=== PATIENT | female | born 2000 | race Caucasian/White ===

== ENCOUNTER 2022-01-06 12:12 | Outpatient (CLI) | payer OTHER, SELFPAY | END 2022-01-06 12:13 | disposition home or self-care (01) | LOC: AMB 02-03 13:10 | PROVIDERS: Visit Provider Family Medicine | DX: R10.9 Unspecified abdominal pain (principal) | CPT/HCPCS: A0425; A0427 ==

== ENCOUNTER 2022-01-06 12:39 | Emergency (ER) | payer OTHER, SELFPAY ==
[2022-01-06 12:45] VITALS: BP 109/65; PULSE 73; RESP 18; TEMP 36.9; O2SAT 96; BMI 21.7
--- NOTE | 2022-01-06 13:19 | ED.GENADULT ---
HPI - General Adult General Time Seen by Provider: 13:20 Date Seen: 01/06/22 Chief complaint: Abdominal Pain Stated complaint: Abdominal pain Time Seen by Provider: 01/06/22 12:52 Source: patient Mode of arrival: EMS Limitations: no limitations History of Present Illness HPI narrative: Patient is a 21-year-old [place] female who is running cross-country today. She completed her race and had severe cramping in her lower abdomen. She reports she has had some intermittent cramping in her abdomen throughout the week. She actually was hospitalized by By her report for about 10 days, in the past urine half for abdominal pain, she had a exploratory laparotomy that showed mesenteric adenitis. There E apparently left appendix intact. She is not on any medications. She is allergic to an antibiotic. She has had no dysuria, frequency, blood in her stool, appetite suppression, weight loss. She has not been known to have inflammatory bowel disease. 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 She was brought in by ambulance, she received IM morphine and nasal fentanyl and she feels better in terms the abdominal discomfort Related Data Home Medications Medication Instructions Recorded Confirmed Bcp 01/06/22 acid controller 01/06/22 Allergies Allergy/AdvReac Type Severity Reaction Status Date / Time antibiotic unknown name Allergy Rash Uncoded 01/06/22 12:43 Review of Systems Status of ROS: Reports: 10 or more systems reviewed and unremarkable except as noted in History and below [facility] Social History Smoking Status: Unknown if ever smoked Non-prescribed substance use: denies use service: No Exam Narrative: Exam Narrative: Objective: Patient is in no apparent distress, talking to her mom on the phone and her roommate is here for support as well Vital signs unremarkable Alert or x3 Mental status appears appropriate HEENT shows no scleral icterus, neck is supple Heart rhythm regular heart murmur chest is clear Abdomen benign soft nontender bowel sounds normoactive Extremities are no edema neurologic nonfocal Good peripheral perfusion perfusion Skin warm and dry Const: Vital Signs, click to edit/add: Vital Signs - 24 hr 01/06/22 12:45 Temperature 98.4 F Pulse Rate [Right Pulse Oximeter] 73 Respiratory Rate 18 Blood Pressure [Ri ght Upper Arm] 109/65 Pulse Oximetry 96 Oxygen Delivery Me thod Room Air Course Vital Signs Vital signs: Initial Vital Signs Temperature 98.4 F 01/06/22 12:45 Temperature Source Temporal Artery Scan 01/06/22 12:45 Pulse Rate 73 01/06/22 12:45 Respiratory Rate 18 01/06/22 12:45 Blood Pressure 109/65 01/06/22 12:45 Blood Pressure Mean 79 01/06/22 12:45 Blood Pressure Position Left Lateral 01/06/22 12:45 Pulse Oximetry 96 01/06/22 12:45 Oxygen Delivery Method 01/06/22 12:45 Vital Signs Temperature 98.4 F 01/06/22 12:45 Pulse Rate 73 01/06/22 12:45 Respiratory Rate 18 01/06/22 12:45 Blood Pressure 109/65 01/06/22 12:45 Pulse Oximetry 96 01/06/22 12:45 Oxygen Delivery Method 01/06/22 12:45 Temperature 98.4 F 01/06/22 12:45 Pulse Rate 73 01/06/22 12:45 Respiratory Rate 18 01/06/22 12:45 Blood Pressure 109/65 01/06/22 12:45 Pulse Oximetry 96 01/06/22 12:45 Oxygen Delivery Method 01/06/22 12:45 Medical Decision Making MDM Narrative Medical decision making narrative: 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 It has been very cold out today, she has had some chronic stomach issues it sounds like. She seems better at this time. She has a non peritoneal abdomen on exam, with no masses. She certainly could be having dehydration causing some of her symptomology common will give her at 1 L IV fluid, will also give her Ativan 0.5 mg IV to help settle her intestinal tract if it is cramping or she has got intestinal colic from running. At this point I do not see a need to image as I think the risk would outweigh the benefit. Will check her labs and give the IV fluid see how she responds. If she improves and I think home light activity fluids and rest would be appropriate for few days and follow up with primary care in the next 2 days. Will review the labs and clinical response is these transpire. Addendum: The patient's labs are back and they look great very reassuring, she is feeling better, I think we can safely let her go home rest light activity, no exercise for a couple of days recheck with primary care in the next 2 days return to ED sooner problems concerns or recurrence. Lab Data Labs: Lab Results 01/06/22 01/06/22 01/06/22 Range/Units 13:30 13:30 13:30 WBC 10.21 (4.50-11.00) K/uL RBC 4.66 (4.00-5.20) m/uL Hgb 13.8 (12.0-16.0) gm/dL Hct 41.2 (33.0-51.0) % MCV 88 (80-100) fL MCH 30 (26-34) pg MCHC 34 (32-36) gm/dL RDW Coeff of Agnieszka 13.3 (11.5-15.5) % Plt Count 243 (140-440) K/uL Neut % (Auto) 81.3 H (42.0-72.0) % Lymph % (Auto) 13.1 L (20-44) % Hardy % (Auto) 4.9 (0.0-11.0) % Eos % (Auto) 0.2 (0.0-7.0) % Baso % (Auto) 0.4 (0.0-3.0) % Neut # (Auto) 8.30 H (1.7-7.0) K/uL Lymph # (Auto) 1.30 (0.90-2.90) K/uL Hardy # (Auto) 0.50 (0.00-0.90) K/UL Eos # (Auto) 0.02 (0.00-0.50) K/uL Baso # (Auto) 0.04 (0.00-0.30) K/uL Abs Immat Gran (auto) 0.01 (0.00-0.30) K/uL Imm/Tot Granulo (auto) 0.1 % Sodium 141 (135-149) mmol/L Potassium 4.2 (3.6-5.1) mmol/L Chloride 108 (96-114) mmol/L Carbon Dioxide 24 (20-32) mmol/L BUN 16 (5-24) mg/dL Creatinine 0.7 (0.5-1.5) mg/dL Estimated Creat Clear 110.70 Estimated GFR 127 ml/min Glucose 84 (60-115) mg/dL Lactate (0.5-1.9) mmol/L Calcium 9.4 (8.4-10.6) mg/dL Total Bilirubin 0.4 (0.1-1.5) mg/dL Direct Bilirubin 0.1 (0.0-0.5) mg/dL AST 32 (12-35) U/L ALT 22 (4-35) U/L Alkaline Phosphatase 74 (40-150) U/L C-Reactive Protein < 0.5 L (0.5-1.0) mg/dL Total Protein 7.6 (6.0-8.3) g/dL Albumin 4.8 (3.3-5.0) g/dL Amylase 118 H (18-89) U/L 01/06/22 Range/Units 13:30 WBC (4.50-11.00) K/uL RBC (4.00-5.20) m/uL Hgb (12.0-16.0) gm/dL Hct (33.0-51.0) % MCV (80-100) fL MCH (26-34) pg MCHC (32-36) gm/dL RDW Coeff of Agnieszka (11.5-15.5) % Plt Count (140-440) K/uL Neut % (Auto) (42.0-72.0) % Lymph % (Auto) (20-44) % Hardy % (Auto) (0.0-11.0) % Eos % (Auto) (0.0-7.0) % Baso % (Auto) (0.0-3.0) % Neut # (Auto) (1.7-7.0) K/uL Lymph # (Auto) (0.90-2.90) K/uL Hardy # (Auto) (0.00-0.90) K/UL Eos # (Auto) (0.00-0.50) K/uL Baso # (Auto) (0.00-0.30) K/uL Abs Immat Gran (auto) (0.00-0.30) K/uL Imm/Tot Granulo (auto) % Sodium (135-149) mmol/L Potassium (3.6-5.1) mmol/L Chloride (96-114) mmol/L Carbon Dioxide (20-32) mmol/L BUN (5-24) mg/dL Creatinine (0.5-1.5) mg/dL Estimated Creat Clear Estimated GFR ml/min Glucose (60-115) mg/dL Lactate 1.8 (0.5-1.9) mmol/L Calcium (8.4-10.6) mg/dL Total Bilirubin (0.1-1.5) mg/dL Direct Bilirubin (0.0-0.5) mg/dL AST (12-35) U/L ALT (4-35) U/L Alkaline Phosphatase (40-150) U/L C-Reactive Protein (0.5-1.0) mg/dL Total Protein (6.0-8.3) g/dL Albumin (3.3-5.0) g/dL Amylase (18-89) U/L Discharge Plan Discharge Clinical Impression: Abdominal pain Patient Disposition: Home w/ Parent or Adult Condition: Improved Additional Instructions: Light activity, fluids, Tylenol as needed, avoid exertional activity for a couple of days such as exercise or training. Recheck with primary care in 2 days, return to ED sooner problems concerns difficulty or new symptoms. Activity Level: Light activity Discharge Diet: Regular Prescriptions: No Action Bcp acid controller Stand Alone Forms: [employer] Info Instructions
[2022-01-06] MEDS: LORazepam 2 MG/ML inj 0.5 MG IVP (13:32)
[2022-01-06] MEDS: 0.9 % SODIUM CHLORIDE 1000 ml 1,000 ML 6000 ML IV (13:40)
[2022-01-06 13:44] LABS: Lactate* 1.8 mmol/L (0.5-1.9)
[2022-01-06 13:45] LABS: Basophils Absolute Auto 0.04 K/uL (0.00-0.30); Basophils Percent Auto 0.4 % (0.0-3.0); Eosinophils Absolute Auto 0.02 K/uL (0.00-0.50); Eosinophils Percent Auto 0.2 % (0.0-7.0); Hematocrit 41.2 % (33.0-51.0); Hemoglobin* 13.8 gm/dL (12.0-16.0); Immature Granulocytes Abs Auto 0.01 K/uL (0.00-0.30); Immature Granulocytes Pct Auto 0.1 %; Lymphocytes Percent Auto 13.1 % (20-44); Mean Corpuscular HGB Conc 34 gm/dL (32-36); Mean Corpuscular Hemoglobin 30 pg (26-34); Mean Corpuscular Volume 88 fL (80-100); Monocytes Percent Auto 4.9 % (0.0-11.0); Neutrophils Percent Auto 81.3 % (42.0-72.0); Platelet Count* 243 K/uL (140-440); RDW Coefficient of Variation % 13.3 % (11.5-15.5); Red Blood Count 4.66 m/uL (4.00-5.20); White Blood Count* 10.21 K/uL (4.50-11.00)
[2022-01-06 14:05] LABS: Albumin* 4.8 g/dL (3.3-5.0)
[2022-01-06 14:06] LABS: Chloride* 108 mmol/L (96-114); Potassium* 4.2 mmol/L (3.6-5.1); Sodium* 141 mmol/L (135-149)
[2022-01-06 14:08] LABS: Alanine Aminotransferase* 22 U/L (4-35); Alkaline Phosphatase* 74 U/L (40-150); Aspartate Amino Transferase* 32 U/L (12-35); Bilirubin Direct* 0.1 mg/dL (0.0-0.5); Bilirubin Total* 0.4 mg/dL (0.1-1.5); Total Protein* 7.6 g/dL (6.0-8.3)
[2022-01-06 14:09] LABS: Amylase* 118 U/L (18-89); Blood Urea Nitrogen* 16 mg/dL (5-24); Carbon Dioxide* 24 mmol/L (20-32); Creatinine* 0.7 mg/dL (0.5-1.5); Estimated Glomerular Filt Rate 127 ml/min; Slide Review Reflex No
[2022-01-06 14:10] LABS: Calcium* 9.4 mg/dL (8.4-10.6); Glucose* 84 mg/dL (60-115)
[2022-01-06 14:15] LABS: C Reactive Protein* < 0.5 mg/dL (0.5-1.0)
== END 2022-01-06 15:00 | disposition home or self-care (01) ==
PROVIDERS: Emergency Provider Family Medicine
DX: R10.30 Lower abdominal pain, unspecified (principal)
CPT/HCPCS: 36415; 80048; 80076; 82150; 83605; 85025; 86140; 96361; 96374; 99284; J2060; J7030